=== PATIENT | male | born 1940 | race Caucasian/White ===

== ENCOUNTER 2023-08-23 09:56 | Emergency (ER) | payer MEDICARE, OTHER ==
[2023-08-23] MEDS ORDERED: Diphtheria,Pertussis(Acell),Tetanus Vaccine 0.5 ML Syringe IM ONE (11:20)
[2023-08-23] MEDS ORDERED: fentaNYL 100 MCG/2 ML SDV IM ONE (11:20)
[2023-08-23] MEDS ORDERED: Bacitracin Oint 1 GM U/D Packet TOP ONE (12:36)
[2023-08-23] MEDS ORDERED: Lidocaine 1% with EPINEPHrine 1:100,000 50 ML MDV SUBCUT STA (12:36)
== END 2023-08-23 14:43 | disposition home or self-care (01) ==
LOC: JP.ED 09:56
DX: S82.141A Displaced bicondylar fracture of right tibia, initial encounter for closed fracture (principal); S01.01XA Laceration without foreign body of scalp, initial encounter; I48.91 Unspecified atrial fibrillation; E78.00 Pure hypercholesterolemia, unspecified; I10 Essential (primary) hypertension; Z87.891 Personal history of nicotine dependence; Z95.0 Presence of cardiac pacemaker; Z79.01 Long term (current) use of anticoagulants; Z79.899 Other long term (current) drug therapy; Z88.1 Allergy status to other antibiotic agents; Z88.2 Allergy status to sulfonamides; Z88.8 Allergy status to other drugs, medicaments and biological substances; W18.30XA Fall on same level, unspecified, initial encounter; Y92.009 Unspecified place in unspecified non-institutional (private) residence as the place of occurrence of the external cause
CPT/HCPCS: 12002; 70450; 73502; 73562; 90471; 90715; 96372; 99284; J3010